=== PATIENT | female | born 1980 | race Caucasian/White ===

== ENCOUNTER 2022-06-26 10:35 | Emergency (ER) | payer OTHER ==
[2022-06-26 10:45] VITALS: TEMP 97
[2022-06-26] MEDS ORDERED: KETOROLAC 15 MG/ML 1 ML VIAL IM STA (11:12)
--- NOTE | 2022-06-26 13:05 | US ---
EXAMINATION TYPE: US transvaginal DATE OF EXAM: 06/26/2022 COMPARISON: NONE CLINICAL HISTORY: pt feels IUD is in cervix. Patient "feels IUD in cervix". Mirena IUD was placed 5 y ears ago. Hx 2 C sections, hx ovarian cyst. . TECHNIQUE: Transvaginal (TV). Date of LMP: 5 years ago EXAM MEASUREMENTS: Uterus: 9.8 x 5.3 x 4.2 cm Endometrial Stripe: 0.37 cm Right Ovary: 2.6 x 2.3 x 1.4 cm Left Ovary: 2.8 x 2.2 x 1.5 cm 1. Uterus: Heterogeneous. Cervix appears anteverted, fundus appears retroflexed. Subcentimeter anecho ic area seen in cervix. Cluster of complex areas seen in cervix: 1.5 x 1.5 x 0.6 cm. 2. Endometrium: Possibly complex fluid seen within: 1.7 cm in transverse. Limitations in visualizin g IUD. Portions of IUD seen within fluid-filled endometrium. 3. Right Ovary: Anechoic area seen: 1.2 x 1.2 x 1.0 cm. 4. Left Ovary: Anechoic area seen: 1.5 x 1.8 x 1.2 cm. Spectral, color and waveform doppler imaging shows good arterial and venous flow within the ovaries . 5. Bilateral Adnexa: Appear wnl 6. Posterior cul-de-sac: Appears wnl IMPRESSION: Difficult to identify the IUD with certainty but appears to be lying low within the uterine cavity an d possibly within the cervix. No other significant abnormality seen involving uterus or adnexa.
[2022-06-26 13:24] VITALS: BP 100/70; PULSE 65; RESP 16
[2022-06-26] MEDS ORDERED: ONDANSETRON 4 MG/2 ML VIAL IM STA (13:30)
[2022-06-26] MEDS ORDERED: MORPHINE SULFATE 2 MG/ML SYRINGE IM ONE (13:30)
[2022-06-26] MEDS ORDERED: ONDANSETRON 4 MG TAB PO STA (13:34)
--- NOTE | 2022-06-26 14:10 | ED ---
General Adult HPI - General Chief complaint: Recheck/Abnormal Lab/Rx Stated complaint: IUD Complications Time Seen by Provider: 06/26/22 10:59 Source: patient Mode of arrival: ambulatory Limitations: no limitations - History of Present Illness Initial comments: Patient is a 41 year old female who presents for IUD complication. Reports forceful sneeze last night during which she felt her IUD move downward. Patient feels that it is lodged in her cervix. She reports significant pelvic cramping since the sneeze. Has not taken any pain medication. Patient states she went to an urgent care yesterday who has concern that the IUD is stuck in the wrong position. States that she called [facility] who directed her to [facility] to see a caseworker protective services. Patient had IUD placed 5 years ago and does not have a caseworker protective services currently. No fever, chills, nausea, vomiting, vaginal discharge - Related Data Previous Rx's Medication Instructions Recorded Ibuprofen [Motrin] 800 mg PO Q8HR PRN #30 tab 06/26/22 Allergies Allergy/AdvReac Type Severity Reaction Status Date / Time No Known Allergies Allergy Verified 06/26/22 10:44 Review of Systems ROS Statement: Those systems with pertinent positive or pertinent negative responses have been documented in the HPI. ROS Other: All systems not noted in ROS Statement are negative. Past Medical History Past Medical History: No Reported History History of Any Multi-Drug Resistant Organisms: None Reported Past Surgical History: Adenoidectomy, Section, Tonsillectomy Past Psychological History: No Psychological Hx Reported Smoking Status: Vaper Past Alcohol Use History: Rare Past Drug Use History: Marijuana General Exam Limitations: no limitations General appearance: alert, in no apparent distress Head exam: Present: atraumatic, normocephalic, normal inspection Eye exam: Present: normal appearance, PERRL, EOMI. Absent: scleral icterus, conjunctival injection, periorbital swelling Respiratory exam: Present: normal lung sounds bilaterally. Absent: respiratory distress, wheezes, rales, rhonchi, stridor Cardiovascular Exam: Present: regular rate, normal rhythm, normal heart sounds. Absent: systolic murmur, diastolic murmur, rubs, gallop, clicks GI/Abdominal exam: Present: soft, normal bowel sounds. Absent: distended, tenderness, guarding, rebound, rigid External exam: Present: normal external exam Speculum exam: Present: normal speculum exam (IUD strings visualized) Neurological exam: Present: alert, oriented X3, CN II-XII intact Psychiatric exam: Present: normal affect, normal mood Skin exam: Present: warm, dry, intact, normal color. Absent: rash Course Vital Signs 06/26/22 06/26/22 10:42 13:00 Temperature 97 F L Pulse Rate 100 65 Respiratory 18 16 Rate Blood Pressure 98/56 100/70 O2 Sat by Pulse 100 99 Oximetry Medical Decision Making - Medical Decision Making Was pt. sent in by a medical professional or institution (, [facility], MARKETING SENIOR RECRUITER, urgent care, hospital, or snf...) When possible be specific @ -No Did you speak to anyone other than the patient for history (EMS, parent, family, police, friend...)? What history was obtained from this source @ -No Did you review nursing and triage notes (agree or disagree)? Why? @ -I reviewed and agree with nursing and triage notes Were old charts reviewed (outside hosp., previous admission, EMS record, old EKG, old radiological studies, urgent care reports/EKG's, snf records)? Report findings @ -No old charts were reviewed Differential Diagnosis (chest pain, altered mental status, abdominal pain women, abdominal pain men, vaginal bleeding, weakness, fever, dyspnea, syncope, headache, dizziness, GI bleed, back pain, seizure, CVA, palpatations, mental health)? @ -PID, IUD complication, ovarian cyst EKG interpreted by me (3pts min.). @ -As above X-rays interpreted by me (1pt min.). @ -None done CT interpreted by me (1pt min.). @ -None done U/S interpreted by me (1pt. min.). @ No. Radiology report suspect low-lying IUD in the uterine cavity and possibly in the cervix. No other significant abnormality seen involving the uterus or adnexa What testing was considered but not performed or refused? (CT, X-rays, U/S, labs)? Why? @ -None What meds were considered but not given or refused? Why? @ -None Did you discuss the management of the patient with other professionals (bradford garces i.e. , PA, MARKETING SENIOR RECRUITER, lab, RT, psych nurse, community mental health social worker, graduate assistant, teacher, learning and development officer, top case assembler)? Give summary @ -No Was smoking cessation discussed for >3mins.? @ -No Was critical care preformed (if so, how long)? @ -No Were there social determinants of health that impacted care today? How? (Homelessness, low income, unemployed, alcoholism, drug addiction, transportation, low edu. Level, literacy, decrease access to med. care, nursing home, rehab)? @ -No Was there de-escalation of care discussed even if they declined (Discuss DNR or withdrawal of care, Hospice)? DNR status @ -No What co-morbidities impacted this encounter? (DM, HTN, Smoking, COPD, CAD, Cancer, CVA, ARF, Chemo, Hep., AIDS, mental health diagnosis, sleep apnea, morbid obesity)? @ -None Was patient admitted / discharged? Hospital course, mention meds given and route, prescriptions, significant lab abnormalities, going to OR and other pertinent info. @ -This is a 41 year old presenting with IUD complication, ultrasound cannot verify location however it is likely IUD is in the lower uterine cavity or the cervix. I gave patient the option for removal which she agreed to. The IUD was removed without complication. Patient felt immediate relief. Patient will be referred to caseworker protective services for further control options. Undiagnosed new problem with uncertain prognosis? @ -No Drug Therapy requiring intensive monitoring for toxicity (Heparin, Nitro, Insulin, Cardizem)? @ -No Were any procedures done? @ -Yes, IUD removal Diagnosis/symptom? @ -IUD complication Acute, or Chronic, or Acute on Chronic? @ -acute Uncomplicated (without systemic symptoms) or Complicated (systemic symptoms)? @ -Uncomplicated Side effects of treatment? @ -No Exacerbation, Progression, or Severe Exacerbation? @ -No Poses a threat to life or bodily function? How? (Chest pain, [place], [place], pneumonia, PE, COPD, DKA, ARF, appy, cholecystitis, CVA, Diverticulitis, Homicidal, Suicidal, threat to staff... and all critical care pts) @ -No Dr. Noel is my attending Disposition Clinical Impression: IUD complication Disposition: HOME SELF-CARE Condition: Good Instructions (If sedation given, give patient instructions): Intrauterine Device (DC) Additional Instructions: Take Motrin as directed. Follow-up with gynecology in one to 2 days. Return to the emergency department if you experience new, concerning, or worsening symptoms. Prescriptions: Ibuprofen [Motrin] 800 mg PO Q8HR PRN #30 tab PRN Reason: Pain Is patient prescribed a controlled substance at d/c from ED?: No Referrals: None,Stated [Primary Care Provider] - 1-2 days Lavinia Devi DO [Doctor of Osteopathic Medicine] - 1-2 days Time of Disposition: 14:10
== END 2022-06-26 14:21 | disposition home or self-care (01) ==
LOC: EC 10:35
DX: T83.9XXA Unspecified complication of genitourinary prosthetic device, implant and graft, initial encounter (principal); F12.90 Cannabis use, unspecified, uncomplicated; F17.290 Nicotine dependence, other tobacco product, uncomplicated
CPT/HCPCS: 93975; 76830; 99284; 96372 ×2; J2270; J1885